=== PATIENT | male | born 1970 | race Caucasian/White ===

== ENCOUNTER → 2017-11-12 | Outpatient (CLI) | payer OTHER ==
[~2017-11-12] MED LIST: ATENOLOL25 MG PO; CRESTOR40 MG PO; LISINOPRIL 10MG10 MG PO; MOTRIN 600MG.600 MG PO
[2017-11-12 11:10] LABS: BUN 15 mg/dL (7-18)
[2017-11-12 11:37] LABS: GFR (ESTIMATED) 90 ML/MIN (>60)
== END ==
LOC: LAB 09:49
PROVIDERS: Nurse Practitioner Family
DX: I10 Essential (primary) hypertension (principal); E78.5 Hyperlipidemia, unspecified